=== PATIENT | male | born 1990 | race Caucasian/White ===

== ENCOUNTER → 2018-12-06 | Emergency (ER) | payer OTHER ==
[~2018-12-06] VITALS: Ht 182.9 cm; Wt 113.4 kg
[2018-12-06 04:31] VITALS: BP 139/92
== END | disposition left against medical advice (07) ==
LOC: ER 04:25
DX: R10.9 Unspecified abdominal pain (principal); R11.0 Nausea; Z53.21 Procedure and treatment not carried out due to patient leaving prior to being seen by health care provider